=== PATIENT | female | born 1980 | race American Indian/Alaskan Native ===

== ENCOUNTER 2017-04-03 01:08 | Inpatient (IN) | payer MEDICAID ==
[2017-04-03] MEDS ORDERED: LACTATED RINGERS 2,000 ML ONE (01:14)
[2017-04-03] MEDS ORDERED: PITOCin/NS 20 UNIT/1000ML DRIP 20,000 MILLIUNITS/1,000 ML BAG IV ONE (01:14)
[2017-04-03] MEDS ORDERED: BRETHINE SUB-Q PRN (01:28)
[2017-04-03] MEDS ORDERED: XYLOCAINE 2% INFILTRATI ONE (01:28)
[2017-04-03] MEDS ORDERED: BRETHINE IVP PRN (01:28)
[2017-04-03] MEDS ORDERED: ZOFRAN IV PRN ×2 (01:28→04:56)
[2017-04-03] MEDS ORDERED: STADOL IV PRN (01:28)
[2017-04-03] MEDS ORDERED: POLYCILLIN/NS 2 GM/100 ML 2 GM/100 ML BAG IV ONE (01:28)
[2017-04-03] MEDS ORDERED: NARCAN 0.4 MG/1 ML IV PRN (01:28)
[2017-04-03] MEDS ORDERED: MINERAL OIL PO PRN (01:28)
[2017-04-03] MEDS ORDERED: ePHEDrine SULFATE IV PRN ×2 (01:28→02:55)
[2017-04-03] MEDS ORDERED: PHENERGAN PO PRN ×2 (01:28→04:56)
[2017-04-03 01:39] LABS: Hematocrit 39.1 % (30.3-42.9); Hemoglobin 13.2 gm/dl (10.1-14.3); Mean Corpuscular HGB Conc 34 % (30-34); Mean Corpuscular Hemoglobin 29 pg (28-32); Mean Corpuscular Volume 85 fl (79-97); Platelet Count 137 K/mm3 (140-440); Red Blood Count 4.63 M/mm3 (3.65-5.03); Red Cell Distribution Width 14.1 % (13.2-15.2)
[2017-04-03] MEDS ORDERED: SUBLIMAZE IV PRN (01:41)
--- NOTE | 2017-04-03 01:43 | History and Physical Report ---
History of Present Illness Date of examination: 04/03/17 Date of admission: 04/03/17 01:08 Chief complaint: water broke History of present illness: This is a 36 yo at 40+3 weeks came in c/o water broke and having contractions. She was evaluated and noted to be grossly ruptured and 3cm. She is a patient of [facility] since first trimester. During her she was evaluated for IUGR but resolved at 30 weeks. She had an US on 03/31 EFW 7 pounds 8 oz OLENA 17cm BPP 09/21 Past History Past Medical History: hematologic disorders (sickle cell trait) Past Surgical History: no surgical history Family/Genetic History: hypertension, cancer Social history: no significant social history, single. denies: smoking, alcohol abuse - Obstetrical History Expected Date of Delivery: 03/31/17 Actual Gestation: 40 Week(s) 3 Day(s) : 3 Para: 2 Hx # Term Pregnancies: 2 Number of Pregnancies: 0 Spontaneous Abortions: 0 Induced : 0 Number of Living Children: 2 Medications and Allergies Allergies Allergy/AdvReac Type Severity Reaction Status Date / Time Latex, Natural Rubber AdvReac Rash Verified 04/03/17 01:19 Active Meds: Active Medications Lactated Ringer's (Lactated Ringers) 1,000 mls @ 125 mls/hr IV DIRECT CANDACE Oxytocin/Sodium Chloride (Pitocin/Ns 20 Unit/1000ml Drip) 20 units in 1,000 mls @ 125 mls/hr IV DIRECT CANDACE Review of Systems All systems: negative Genitourinary: leakage of fluid, contractions - Physical Exam Breasts: Positive: normal Cardiovascular: Regular rate, Normal S1 Lungs: Positive: Clear to auscultation, Normal air movement Abdomen: Positive: normal appearance, soft, normal bowel sounds. Negative: distention, tenderness, guarding Genitourinary (Female): Positive: normal external genitalia, normal perenium Vulva: both: normal Vagina: Positive: normal moisture Uterus: Positive: normal size Anus/Rectum: Positive: normal perianal skin Extremities: Positive: normal Deep Tendon Reflex Grade: Normal +2 - Obstetrical FHR: category 1 Uterine Contraction Monitor Mode: External Cervical Dilatation: 3 Uterine Contraction Pattern: Regular Uterine Tone Measurement Phase: Contraction Uterine Contraction Intensity: Moderate Results All other labs normal. Assessment and Plan A/P HD#1 IUP 40+3 weeks GBS + antibiotics started ivf, labs offer epidural expect vaginal delivery
[2017-04-03] MEDS ORDERED: LACTATED RINGERS 1,000 ML IV SCH ×2 (02:00)
[2017-04-03] MEDS ORDERED: PITOCin/NS 30 UNIT/500ML 30 UNITS/500 ML BAG IV SCH ×2 (02:00)
[2017-04-03] MEDS ORDERED: PITOCin/NS 20 UNIT/1000ML DRIP 20 UNITS/1,000 ML BAG IV SCH ×3 (02:00→05:00)
[2017-04-03] MEDS ORDERED: NARCAN 2 MG/2 ML IV PRN (02:55)
--- NOTE | 2017-04-03 02:55 | Anesthesia Consultation ---
Anesthesia Consult and Med Hx Date of service: 04/03/17 - Airway Anesthetic Teeth Evaluation: Good ROM Head & Neck: Adequate Mental/Hyoid Distance: Adequate Mallampati Class: Class II Intubation Access Assessment: Probably Good - Pulmonary Exam CTA: Yes - Cardiac Exam Cardiac Exam: RRR - Pre-Operative Health Status ASA Pre-Surgery Classification: ASA2 Proposed Anesthetic Plan: Epidural - Pulmonary Hx Asthma: No - Cardiovascular System Hx Hypertension: No - Central Nervous System Hx Seizures: No Hx Psychiatric Problems: No - Endocrine Hx Renal Disease: No Hx Hypothyroidism: No Hx Hyperthyroidism: No - Hematic Hx Anemia: No Hx Sickle Cell Disease: No (SICKLE CELL TRAIT) - Other Systems Hx Alcohol Use: No
[2017-04-03] MEDS ORDERED: fentaNYL-BUPIV 2 MCG/ML-0.125% 200 MCG/100 ML BAG EPIDURAL SCH (03:00)
[2017-04-03] MEDS ORDERED: LANSINOH TP PRN (04:56)
[2017-04-03] MEDS ORDERED: TORADOL IV PRN (04:56)
[2017-04-03] MEDS ORDERED: TYLENOL PO PRN (04:56)
[2017-04-03] MEDS ORDERED: PERCOCET 5/325 PO PRN (04:56)
[2017-04-03] MEDS ORDERED: MILK OF MAGNESIA PO PRN (04:56)
[2017-04-03] MEDS ORDERED: BENADRYL PO PRN (04:56)
[2017-04-03] MEDS ORDERED: DULCOLAX PR PRN (04:56)
[2017-04-03] MEDS ORDERED: PHENERGAN PR PRN (04:56)
--- NOTE | 2017-04-03 04:56 | Procedure Note ---
OB Delivery Note - Delivery Date of Delivery: 04/03/17 Surgeon: JEROME PRETTY Estimated blood loss: other (150cc) - Vaginal Delivery presentation: vertex Delivery position: OA Intrapartum events: meconium Delivery induction: none Delivery monitor: external FHT, external uterine Route of delivery: Delivery placenta: spontaneous Delivery cord: nuchal cord (x2), 3 umbilical vessels Episiotomy: none Delivery laceration: 1st degree Delivery repair: vicryl Anesthesia: epidural Delivery comments: Patient was noted to be c/c/+1 and pushing She had just received an epidural. She commenced to pushing a viable female in OA presentation at 0436. A cord was palpated and reduced easily x2. The shoulders delivered easily. The cord was cut and clamped and suction of naso and oropharynx. The placenta delivered at 0440 intact with 3 vessel cord. Apgars 8 and 9. Peds staff in room and available for care of baby after delivery. Female infant 8 pounds 4 ounces. Survey of the patient perineum was with small 1st degree lac repaired with 2-0 vicryl . EBL 150cc. Patient tolerated procedure well and bonded with baby. - Infant A at 1 minute: 8 at 5 minutes: 9 Gender: Female
[2017-04-03] MEDS ORDERED: SODIUM CHLORIDE FLUSH SYRINGE 10 ML IV PRN (05:00)
[2017-04-03] MEDS ORDERED: SENOKOT S PO SCH (05:00)
[2017-04-03] MEDS ORDERED: DERMOPLAST TP PRN (06:33)
[2017-04-03] MEDS: MOTRIN PO SCH (06:44)
[2017-04-03] MEDS: TUCKS PAD TP PRN (06:45)
[2017-04-03] MEDS: NORCO 5/325 PO PRN ×2 (10:35→18:44)
[2017-04-03] MEDS: COLACE PO SCH (10:35)
[2017-04-03] MEDS: PRENATAL VITAMIN PO SCH (10:35)
[2017-04-03 16:59] LABS: Hematocrit 37.6 % (30.3-42.9); Hemoglobin 12.9 gm/dl (10.1-14.3)
[2017-04-04] MEDS: MOTRIN PO SCH ×5 (00:45→23:18)
[2017-04-04] MEDS: COLACE PO SCH ×3 (00:45→23:18)
[2017-04-04] MEDS ORDERED: PERCOCET 5/325 PO PRN (02:21)
[2017-04-04] MEDS ORDERED: M-M-R II VACCINE SUB-Q ONE (04:56)
[2017-04-04] MEDS ORDERED: BOOSTRIX IM ONE (06:00)
--- NOTE | 2017-04-04 08:36 | Progress Note ---
Assessment and Plan - Patient Problems (1) Active labor at term Current Visit: Yes Status: Acute Plan to address problem: patient doing well will determine status of the 's discharge Subjective - Subjective Date of service: 04/04/17 Interval history: Patient without complaints. Pain well controlled. Patient reports: appetite normal, voiding normally, pain well controlled [place]: doing well Objective - Vital Signs Latest vital signs: Vital Signs Temp Pulse Resp BP BP Pulse Ox 04/04/17 00:45 18 04/04/17 00:00 98.2 F 75 18 107/64 04/03/17 17:24 98.5 F 68 18 115/67 98 04/03/17 11:40 98.3 F 65 115/64 04/03/17 09:29 98.2 F 71 18 115/63 97 04/03/17 08:55 98.2 F 70 181 H 115/63 96 Intake and Output 04/03/17 04/04/17 04/04/17 22:59 06:59 14:59 Intake Total 480 240 Output Total 1 Balance 479 240 Intake: Oral 240 240 Intake, Free Water 240 Output: Urine 1 Indwelling Catheter 1 Other: Total, Intake Amount 120 240 Total, Output Amount 1 # Voids Indwelling Catheter 1 1 - Exam Abdomen: Present: normal appearance, soft Uterus: Present: normal, firm
--- NOTE | 2017-04-04 08:38 | Discharge Summary ---
Providers - Providers Date of Admission: 04/03/17 01:08 Date of discharge: 04/05/17 Attending physician: JEROME PRETTY MD Primary care physician: JEROME PRETTY MD Hospitalization Reason for admission: active labor Delivery: complications: none Discharge diagnosis: IUP at term delivered baby: female Hospital course: Patient admitted in active labor. Did not receive adequate coverage for GBS. Infant monitored 48hours. Condition at discharge: Good Disposition: DC-01 TO HOME OR SELFCARE - Discharge Diagnoses (1) Active labor at term Status: Acute Plan - Discharge Medications Prescriptions: Ferrous Sulfate 325 mg PO BID #30 tablet. HYDROcodone/APAP 5-325 [[place] 5/325] 1 each PO Q6HR PRN #30 tablet PRN Reason: Pain Ibuprofen [Motrin] 600 mg PO Q8H PRN #30 tablet PRN Reason: Pain - Provider Discharge Summary Activity: no sex for 6 weeks, no heavy lifting 4 weeks, no strenuous exercise Diet: routine Instructions: routine Additional instructions: [] Smoking cessation referral if applicable(refer to patient education folder for contact #) [] Refer to [facility] Booklet Call your doctor immediately for: * Fever > 100.5 * Heavy vaginal bleeding ( >1 pad per hour) * Severe persistent headache * Shortness of breath * Reddened, hot, painful area to leg or breast * followup in 4 weeks - Follow up plan
[2017-04-04] MEDS: PRENATAL VITAMIN PO SCH (12:04)
[2017-04-04] MEDS: NORCO 5/325 PO PRN (18:27)
[2017-04-05] MEDS: MOTRIN PO SCH (05:33)
[2017-04-05] MEDS: TUCKS PAD TP PRN (05:33)
[2017-04-05 12:10] VITALS: BP 125/58
== END 2017-04-05 10:30 | disposition home or self-care (01) | DRG 775 ==
LOC: LD 01:08 → OB 06:13
PROVIDERS: ADMIT Obstetrics & Gynecology; ATTEND Obstetrics & Gynecology
PROC: 10E0XZZ Delivery of Products of Conception, External Approach (ICD-10-PCS; principal; 2017-04-03)
PROC: 0HQ9XZZ Repair Perineum Skin, External Approach (ICD-10-PCS; 2017-04-03)
PROC: 3E0R3BZ Introduction of Anesthetic Agent into Spinal Canal, Percutaneous Approach (ICD-10-PCS; 2017-04-03)
PROC: 00HU33Z Insertion of Infusion Device into Spinal Canal, Percutaneous Approach (ICD-10-PCS; 2017-04-03)
PROC: 3E0234Z Introduction of Serum, Toxoid and Vaccine into Muscle, Percutaneous Approach (ICD-10-PCS; 2017-04-04)
DX: O99.824 Streptococcus B carrier state complicating childbirth (principal); O77.0 Labor and delivery complicated by meconium in amniotic fluid; O69.1XX0 Labor and delivery complicated by cord around neck, with compression, not applicable or unspecified; O70.0 First degree perineal laceration during delivery; Z3A.40 40 weeks gestation of pregnancy; Z37.0 Single live birth; Z82.49 Family history of ischemic heart disease and other diseases of the circulatory system; Z80.9 Family history of malignant neoplasm, unspecified; Z91.040 Latex allergy status; Z23 Encounter for immunization; O99.02 Anemia complicating childbirth; D57.3 Sickle-cell trait
CPT/HCPCS: 36415; 85014; 85018; 85027; 86592; 86850; 86900; 86901; 90471; 90715; 99211; A6250; G0463; J0290; J0595; J2405; J2590; J7120